=== PATIENT | male | born 1940 | race Caucasian/White ===

== ENCOUNTER 2017-08-12 08:52 | Day surgery (SDC) | payer MEDICARE, OTHER ==
[~2017-08-12] VITALS: Ht 177.8 cm; Wt 70.3 kg
[~2017-08-12 08:52] MED LIST: BUDESONIDE PO; CEPH500 PO; DIPH50 PO; ETOD300 PO; HYDACE5 PO; Ipratr-Albuterol3 ML INH; METF500 PO; Ventolin5 MG/1 ML INH
== END 2017-08-12 22:52 | disposition home or self-care (01) ==
LOC: ORSCMMR 08:52 → ORD 10:45 → ORSCMMR 10:45
PROVIDERS: Surgery
PROC: 0JB50ZZ Excision of Left Neck Subcutaneous Tissue and Fascia, Open Approach (ICD-10-PCS; principal; 2017-08-12 10:45)
PROC: 0JB40ZZ Excision of Right Neck Subcutaneous Tissue and Fascia, Open Approach (ICD-10-PCS; principal; 2017-08-12 10:45)
DX: L72.8 Other follicular cysts of the skin and subcutaneous tissue (principal); E11.9 Type 2 diabetes mellitus without complications; J44.9 Chronic obstructive pulmonary disease, unspecified; Z79.899 Other long term (current) drug therapy; F17.210 Nicotine dependence, cigarettes, uncomplicated
CPT/HCPCS: 82947; 88304; J0330; J0690; J1100; J2250; J2405; J3010; J7120

== ENCOUNTER 2017-10-31 08:17 | Emergency (ER) | payer MEDICARE, OTHER ==
[~2017-10-31] VITALS: Ht 177.8 cm; Wt 75.3 kg
[2017-10-31] MEDS ORDERED: Norco 5-325 Ta1 EACH PO (09:33)
== END 2017-10-31 10:04 | disposition home or self-care (01) ==
LOC: ER 08:17
DX: S99.921A Unspecified injury of right foot, initial encounter (principal); E11.40 Type 2 diabetes mellitus with diabetic neuropathy, unspecified; F17.200 Nicotine dependence, unspecified, uncomplicated; Z79.899 Other long term (current) drug therapy; Z79.84 Long term (current) use of oral hypoglycemic drugs; X58.XXXA Exposure to other specified factors, initial encounter
CPT/HCPCS: 73620; 99283-25

== ENCOUNTER 2020-03-22 14:55 | Emergency (ER) | payer OTHER, MEDICARE ==
[~2020-03-22] VITALS: Ht 177.8 cm; Wt 79.4 kg
[~2020-03-22 14:55] MED LIST changes: +Norco 5-325 Ta1 EACH PO
== END 2020-03-22 17:10 | disposition home or self-care (01) ==
LOC: ER 14:55
DX: S61.011A Laceration without foreign body of right thumb without damage to nail, initial encounter (principal); S09.90XA Unspecified injury of head, initial encounter; E11.40 Type 2 diabetes mellitus with diabetic neuropathy, unspecified; F17.200 Nicotine dependence, unspecified, uncomplicated; Z79.84 Long term (current) use of oral hypoglycemic drugs; Z23 Encounter for immunization; W10.9XXA Fall (on) (from) unspecified stairs and steps, initial encounter
CPT/HCPCS: 12001; 70450; 72125; 73110; 90471; 90714; 99284-25

== ENCOUNTER 2023-03-10 02:53 | Emergency (ER) | payer MEDICARE, OTHER ==
[~2023-03-10] VITALS: Ht 177.8 cm; Wt 79.4 kg
[~2023-03-10 02:53] MED LIST changes: +GABA300 PO; +METO25ER PO
[2023-03-10 03:04] LABS: Bicarbonate Venous 27.6 mmol/L (24.0-30.0); PCO2 Venous 68.3 mmHg (38-42); pH Blood Venous 7.31 (7.34-7.37)
[2023-03-10 03:28] LABS: BASOPHILS ABSOLUTE AUTO 0.06 K/mm3 (0.00-0.23); BASOPHILS PERCENT AUTO 1 % (0-2); EOSINOPHILS ABSOLUTE AUTO 0.26 K/mm3 (0.00-0.68); EOSINOPHILS PERCENT AUTO 3 % (0-6); Hematocrit 42.6 % (37.0-53.0); Hemoglobin 14.2 g/dL (13.5-17.5); IMMATURE GRAN ABSOLUTE AUTO 0.03 K/mm3 (0.00-0.10); IMMATURE GRAN PERCENT AUTO 0 % (0-1); LYMPHOCYTES ABSOLUTE AUTO 1.91 K/mm3 (0.84-5.20); LYMPHOCYTES PERCENT AUTO 22 % (21-46); MONOCYTES ABSOLUTE AUTO 1.07 K/mm3 (0.16-1.47); MONOCYTES PERCENT AUTO 12 % (4-13); Mean Corpuscular HGB 31.8 pg (26.0-34.0); Mean Corpuscular HGB Conc 33.3 g/dL (31.5-36.5); Mean Corpuscular Volume 95 fL (80-100); NEUTROPHILS ABSOLUTE AUTO 5.52 K/mm3 (1.96-9.15); NEUTROPHILS PERCENT AUTO 62 % (41-73); Platelet Count 327 K/mm3 (150-400); RDW Coefficient Variation 12.9 % (11.7-14.2); RDW Standard Deviation 45.6 fL (35.1-46.3); Red Blood Cell Count 4.47 M/mm3 (4.30-5.90); White Blood Cell Count 8.85 K/mm3 (4.00-11.30)
[2023-03-10 03:41] LABS: Albumin, Blood 3.4 g/dL (3.4-5.0); Albumin/Globulin Ratio 0.8 (0.8-1.8); Bilirubin, Total 0.4 mg/dL (0.1-1.0); Bun/Creatinine Ratio 21.5 (12.0-20.0); Calcium, Blood 8.9 mg/dL (8.5-10.1); Creatinine, Blood 0.79 mg/dL (0.60-1.20); Globulin, Blood 4.1 g/dL (2.2-4.0); Magnesium, Blood 2.2 mg/dL (1.6-2.4); Phosphorus, Blood 4.5 mg/dL (2.5-4.9); Potassium, Blood 5.1 mmol/L (3.5-5.5); Total Protein, Blood 7.5 g/dL (6.4-8.2)
[2023-03-10 04:22] LABS: Influenza A, PCR NEGATIVE (NEGATIVE); Influenza B, PCR NEGATIVE (NEGATIVE); Resp Syncytial Virus, PCR NEGATIVE (NEGATIVE); SARS-Cov-2 (COVID-19) PCR, MMC NEGATIVE (NEGATIVE)
[2023-03-10 04:51] LABS: D-Dimer, Quantitative 0.67 mg/L FEU (0.00-0.52); International Normalized Ratio 1.04; Prothrombin Time Results 10.9 Sec (9.7-11.5)
[2023-03-10] MEDS ORDERED: AZIT250 PO (06:24)
[2023-03-10 08:15] VITALS: BP 142/76
== END 2023-03-10 08:30 | disposition home or self-care (01) ==
LOC: ER 02:53
PROVIDERS: Emergency Medicine
DX: J18.9 Pneumonia, unspecified organism (principal); J44.9 Chronic obstructive pulmonary disease, unspecified; E11.40 Type 2 diabetes mellitus with diabetic neuropathy, unspecified; F17.210 Nicotine dependence, cigarettes, uncomplicated; Z79.899 Other long term (current) drug therapy; Z79.84 Long term (current) use of oral hypoglycemic drugs; Z20.822 Contact with and (suspected) exposure to COVID-19
CPT/HCPCS: 0241U; 71046; 80053; 82803; 83605; 83735; 83880; 84100; 84484; 85025; 85379; 85610; 85730; 93005; 93010; 96365; 96375; 99285-25; J0456; J0696; J7050